=== PATIENT | female | born 1975 | race Two or more races ===

== ENCOUNTER 2017-10-11 22:02 | Emergency (ER) | payer OTHER ==
[~2017-10-11] VITALS: Ht 170.2 cm; Wt 107.5 kg
[2017-10-11 22:28] VITALS: BP 167/102
[2017-10-12 00:08] LABS: microscopic required? YES; urine erythrocyte 3+ (NEGATIVE)
== END 2017-10-12 01:39 | disposition home or self-care (01) ==
LOC: ED 22:02
PROVIDERS: Emergency Medicine
DX: N39.0 Urinary tract infection, site not specified (principal)
CPT/HCPCS: J1885